=== PATIENT | male | born 1985 | race Caucasian/White ===

== ENCOUNTER 2017-11-14 22:39 | Emergency (ER) | payer OTHER ==
[~2017-11-14] VITALS: Ht 190.5 cm; Wt 101.6 kg
[~2017-11-14 22:39] MED LIST: CEPH500 PO; CYCL10 PO; HYDACE5 PO; NAPR500 PO; Robaxin-750750 MG PO; SULI150 PO
== END 2017-11-15 00:17 | disposition home or self-care (01) ==
LOC: ER 22:39
DX: S62.366A Nondisplaced fracture of neck of fifth metacarpal bone, right hand, initial encounter for closed fracture (principal); W23.0XXA Caught, crushed, jammed, or pinched between moving objects, initial encounter
CPT/HCPCS: 29125; 73130; 96372; 99283; J1885